=== PATIENT | female | born 1955 | race Caucasian/White ===

== ENCOUNTER 2017-04-04 13:04 | Inpatient (IN) | payer OTHER ==
[~2017-04-04] VITALS: Ht 167.6 cm; Wt 54.3 kg
[2017-04-04] MEDS ORDERED: PREDNISONE 5 MG5 M1 PO (13:25)
[2017-04-04 14:03] LABS: ABSOLUTE NEUTROPHILS 5.8 thou/uL (1.4-8.2); BASOPHILS 0.4 % (0.0-2.0); EOSINOPHILS 1.7 % (0.0-3.0); HEMATOCRIT 43.7 % (37.0-47.0); HEMOGLOBIN 15.2 gm/dL (12.0-15.0); LYMPHOCYTES 17.4 % (24.0-44.0); MCH 36.7 pg (26.0-34.0); MCHC 34.6 g/dL (28.0-37.0); MCV 106.1 fL (80.0-100.0); MONOCYTES 7.2 % (1.0-8.0); PLATELET COUNT 194 thou/uL (150-400); POLYS 73.3 % (36.0-66.0); RBC 4.12 mil/uL (4.20-5.00); RDW 15.6 % (10.5-14.5); WBC 7.9 thou/uL (4.0-11.0)
[2017-04-04 14:05] LABS: MANUAL DIFF NO
[2017-04-04 14:09] LABS: ANION GAP 9 mmol/L (7-16); BUN 16 mg/dL (7-18); CALCIUM 9.2 mg/dL (8.5-10.1); CHLORIDE 107 mmol/L (98-107); CO2 30 mmol/L (21-32); CREATININE 0.4 mg/dL (0.6-1.0); GLUCOSE 83 mg/dL (74-106); POTASSIUM 3.9 mmol/L (3.5-5.1); SODIUM 146 mmol/L (136-145)
[2017-04-04 14:15] LABS: ALBUMIN 3.1 g/dL (3.4-5.0); ALKALINE PHOSPHATASE 102 U/L (46-116); SALICYLATE < 2.8 mg/dL (2.8-20.0); SGOT 24 U/L (15-37); SGPT 22 U/L (30-65); TOTAL BILIRUBIN 0.2 mg/dL (<0.1-1.0); TOTAL PROTEIN 7.2 g/dL (6.4-8.2)
[2017-04-04 14:16] LABS: ACETAMINOPHEN < 2 ug/mL (10-30)
[2017-04-04 15:01] LABS: URINE BILIRUBIN NEGATIVE (Negative); URINE BLOOD NEGATIVE (Negative); URINE COLOR YELLOW; URINE GLUCOSE-RANDOM* NEGATIVE (Negative); URINE KETONES NEGATIVE (Negative); URINE LEUKOCYTES-REFLEX NEGATIVE (Negative); URINE PROTEIN (DIPSTICK) NEGATIVE (Negative); URINE UROBILINOGEN 0.2 E.U./dl (0.2-1.0)
[2017-04-04 15:09] LABS: AMP/METHAMP Negative (Negative); BARBITURATES Negative (Negative); BENZODIAZEPINES Negative (Negative); COCAINE Negative (Negative); METHADONE Negative (Negative); OPIATES Negative (Negative); PCP Negative (Negative); THC Negative (Negative)
[2017-04-04 20:56] VITALS: BP 148/71
[2017-04-04 21:10] VITALS: BP 141/79
[2017-04-04 22:24] LABS: MAGNESIUM 1.1 mg/dL (1.8-2.4); PHOSPHORUS 2.7 mg/dL (2.5-4.9)
[2017-04-04 22:53] LABS: FOLIC ACID 8.6 ng/mL (8.6-58.9)
[2017-04-05 04:26] VITALS: BP 137/74
[2017-04-05 06:13] LABS: HEMATOCRIT 37.8 % (37.0-47.0); HEMOGLOBIN 12.6 gm/dL (12.0-15.0); MCH 35.7 pg (26.0-34.0); MCHC 33.4 g/dL (28.0-37.0); MCV 106.7 fL (80.0-100.0); RBC 3.54 mil/uL (4.20-5.00); RDW 15.8 % (10.5-14.5); WBC 7.2 thou/uL (4.0-11.0)
[2017-04-05 06:27] LABS: CALCIUM 8.2 mg/dL (8.5-10.1); CREATININE 0.8 mg/dL (0.6-1.0); MAGNESIUM 2.3 mg/dL (1.8-2.4); POTASSIUM 3.6 mmol/L (3.5-5.1)
[2017-04-05 07:43] VITALS: BP 154/75
[2017-04-05 09:10] LABS: FREE T4 1.08 ng/dL (0.82-1.77)
[2017-04-05 15:54] VITALS: BP 154/73
[2017-04-05 19:35] VITALS: BP 150/76
[2017-04-06 03:52] VITALS: BP 154/71
[2017-04-06 06:03] LABS: ABSOLUTE NEUTROPHILS 5.3 thou/uL (1.4-8.2); BASOPHILS 0.4 % (0.0-2.0); EOSINOPHILS 1.4 % (0.0-3.0); HEMATOCRIT 41.4 % (37.0-47.0); HEMOGLOBIN 14.2 gm/dL (12.0-15.0); LYMPHOCYTES 17.6 % (24.0-44.0); MCH 36.1 pg (26.0-34.0); MCHC 34.3 g/dL (28.0-37.0); MCV 105.2 fL (80.0-100.0); PLATELET COUNT 174 thou/uL (150-400); POLYS 71.6 % (36.0-66.0); RBC 3.93 mil/uL (4.20-5.00); RDW 15.2 % (10.5-14.5); WBC 7.3 thou/uL (4.0-11.0)
[2017-04-06 06:04] LABS: MANUAL DIFF NO
[2017-04-06 06:13] LABS: CREATININE 0.8 mg/dL (0.6-1.0); MAGNESIUM 1.7 mg/dL (1.8-2.4); PHOSPHORUS 2.5 mg/dL (2.5-4.9); POTASSIUM 3.9 mmol/L (3.5-5.1)
[2017-04-06 08:00] VITALS: BP 148/70
[2017-04-06] MEDS ORDERED: REMERON15 MG PO (10:05)
[2017-04-06] MEDS ORDERED: LIBRAX CAPSULE1 EACH PO (10:06)
[2017-04-06 12:00] VITALS: BP 148/70
== END 2017-04-06 12:16 | disposition home or self-care (01) | DRG 897 ==
LOC: EDBD 13:04 → ER 13:04 → 4S 20:36 → EROBS 20:36 → 4S 21:14
PROVIDERS: Emergency Medicine; Nurse Practitioner Family
DX: F10.230 Alcohol dependence with withdrawal, uncomplicated (principal); F41.9 Anxiety disorder, unspecified; F32.9 Major depressive disorder, single episode, unspecified; J44.9 Chronic obstructive pulmonary disease, unspecified; G40.909 Epilepsy, unspecified, not intractable, without status epilepticus; F17.210 Nicotine dependence, cigarettes, uncomplicated; Y90.8 Blood alcohol level of 240 mg/100 ml or more; Z88.6 Allergy status to analgesic agent
CPT/HCPCS: 10100

== ENCOUNTER 2017-12-21 19:20 | Emergency (ER) | payer OTHER ==
[~2017-12-21] VITALS: Ht 167.6 cm; Wt 54.4 kg
--- NOTE | ~2017-12-21 | EKG ---
[address] [address] ELECTROCARDIOGRAM REPORT Name: MINDI WAGNER ALLYSSA Room #: DEP [facility]#: [id number] Admission: 12/21/17 Attend Phys: Discharge: 12/21/17 Date of : 53 Report #: [id number] THIS REPORT FOR: //name// [facility] ED Test Date: 2017-12-21 Test Time: 20:14:16 Pat Name: MINDI WAGNER Department: Room: Gender: F [employer]: SOSA : 1955 Requested By: David Peoples Order Number: [id number] MD: Jose Rafael Graves Measurements Intervals [place] Rate: 100 P: 66 NM: 129 QRS: 73 QRSD: 85 T: 58 QT: 360 QTc: 465 Interpretive Statements Sinus tachycardia Otherwise normal tracing No previous ECG available for comparison Electronically Signed On 12-23-2017 10:06:17 CDT by Jose Rafael Graves [email or web address] <ELECTRONICALLY SIGNED> By: Jose Rafael Graves MD, [facility] 12/23/17 1006 2014 13 Jose Rafael Graves MD, FACC /EPI
[~2017-12-21 19:20] MED LIST: LIBRAX CAPSULE1 EACH PO; PREDNISONE 5 MG5 M1 PO; REMERON15 MG PO
[2017-12-21 21:07] LABS: ABSOLUTE NEUTROPHILS 5.1 thou/uL (1.4-8.2); BASOPHILS 0.7 % (0.0-2.0); EOSINOPHILS 0.8 % (0.0-3.0); HEMATOCRIT 39.1 % (37.0-47.0); LYMPHOCYTES 29.7 % (24.0-44.0); MCHC 33.3 g/dL (28.0-37.0); MCV 93.1 fL (80.0-100.0); MONOCYTES 5.9 % (1.0-8.0); PLATELET COUNT 266 thou/uL (150-400); POLYS 62.9 % (36.0-66.0); RDW 15.8 % (10.5-14.5); WBC 8.1 thou/uL (4.0-11.0)
[2017-12-21 21:10] LABS: ANION GAP 7 mmol/L (7-16); BUN 13 mg/dL (7-18); CALCIUM 8.8 mg/dL (8.5-10.1); CHLORIDE 106 mmol/L (98-107); CO2 31 mmol/L (21-32); CREATININE 0.7 mg/dL (0.6-1.0); GLUCOSE 90 mg/dL (74-106); POTASSIUM 3.5 mmol/L (3.5-5.1); SODIUM 144 mmol/L (136-145)
[2017-12-21 21:19] LABS: TROPONIN-I < 0.04 ng/mL (<0.06)
[2017-12-21] MEDS ORDERED: PREDNISONE 20 M20 MG PO (21:49)
== END 2017-12-21 22:26 | disposition home or self-care (01) ==
LOC: ER 19:20
PROVIDERS: Physician Assistant
DX: J44.1 Chronic obstructive pulmonary disease with (acute) exacerbation (principal); F10.129 Alcohol abuse with intoxication, unspecified; R55 Syncope and collapse; F32.9 Major depressive disorder, single episode, unspecified; F41.9 Anxiety disorder, unspecified; Z88.5 Allergy status to narcotic agent

== ENCOUNTER 2018-06-23 11:45 | Emergency (ER) | payer OTHER ==
[~2018-06-23] VITALS: Ht 165.1 cm; Wt 67.1 kg
[~2018-06-23 11:45] MED LIST changes: +PREDNISONE 20 M20 MG PO
[2018-06-23] MEDS ORDERED: MS CONTIN15 MG PO (12:02)
[2018-06-23] MEDS ORDERED: IPRAT-ALBUT 0.5-3 ML INH (12:02)
[2018-06-23] MEDS ORDERED: PROZAC10 MG PO (12:03)
[2018-06-23] MEDS ORDERED: LIPITOR10 MG PO (12:03)
[2018-06-23] MEDS ORDERED: NEURONTIN600 MG PO (12:03)
[2018-06-23] MEDS ORDERED: ATIVAN1 MG PO (12:04)
[2018-06-23] MEDS ORDERED: HALOPERIDOL 2 MG2 M1 PO (12:04)
[2018-06-23] MEDS ORDERED: SENNA-TIME S T1 EACH PO (12:05)
[2018-06-23] MEDS ORDERED: MUCINEX600 MG PO (12:05)
[2018-06-23] MEDS ORDERED: PREDNISONE 10 M10 M1 PO (12:05)
[2018-06-23] MEDS ORDERED: ALBUTEROL2.5 MG/31 INH (12:06)
[2018-06-23] MEDS ORDERED: SYMBICORT160 MCG/4. INH (12:06)
[2018-06-23] MEDS ORDERED: SPIRIVA INH (12:06)
[2018-06-23] MEDS ORDERED: ASPERCREME76.5 GM TOP (12:07)
[2018-06-23] MEDS ORDERED: MORPHINE SULFAT15 M3 PO (12:07)
[2018-06-23] MEDS ORDERED: LOPERAMIDE 2 MG2 M1 PO (12:07)
[2018-06-23] MEDS ORDERED: TYLENOL325 MG PO (12:07)
[2018-06-23] MEDS ORDERED: VENTOLIN HFA 1818 GM INH (12:08)
[2018-06-23 14:19] VITALS: BP 127/62
== END 2018-06-23 14:20 | disposition home or self-care (01) ==
LOC: ER 11:45
DX: M54.5 Low back pain (principal); G89.29 Other chronic pain; Z51.81 Encounter for therapeutic drug level monitoring; F17.210 Nicotine dependence, cigarettes, uncomplicated; F41.9 Anxiety disorder, unspecified; F32.9 Major depressive disorder, single episode, unspecified; J44.9 Chronic obstructive pulmonary disease, unspecified; F20.9 Schizophrenia, unspecified; K76.0 Fatty (change of) liver, not elsewhere classified; Z88.5 Allergy status to narcotic agent

== ENCOUNTER 2018-06-23 23:40 | Emergency (ER) | payer OTHER ==
[~2018-06-23] VITALS: Ht 165.1 cm; Wt 67.1 kg
[~2018-06-23 23:40] MED LIST changes: +ALBUTEROL2.5 MG/31 INH; +ASPERCREME76.5 GM TOP; +ATIVAN1 MG PO; +HALOPERIDOL 2 MG2 M1 PO; +IPRAT-ALBUT 0.5-3 ML INH; +LIPITOR10 MG PO; +LOPERAMIDE 2 MG2 M1 PO; +MORPHINE SULFAT15 M3 PO; +MS CONTIN15 MG PO; +MUCINEX600 MG PO; +NEURONTIN600 MG PO; +PREDNISONE 10 M10 M1 PO; +PROZAC10 MG PO; +SENNA-TIME S T1 EACH PO; +SPIRIVA INH; +SYMBICORT160 MCG/4. INH; +TYLENOL325 MG PO; +VENTOLIN HFA 1818 GM INH
[2018-06-24 03:13] VITALS: BP 137/71
== END 2018-06-24 03:20 | disposition home or self-care (01) ==
LOC: ER 23:40
DX: S51.012A Laceration without foreign body of left elbow, initial encounter (principal); S41.111A Laceration without foreign body of right upper arm, initial encounter; F17.210 Nicotine dependence, cigarettes, uncomplicated; F41.9 Anxiety disorder, unspecified; F32.9 Major depressive disorder, single episode, unspecified; J44.9 Chronic obstructive pulmonary disease, unspecified; F20.9 Schizophrenia, unspecified; K76.0 Fatty (change of) liver, not elsewhere classified; Z88.5 Allergy status to narcotic agent; W18.39XA Other fall on same level, initial encounter; Y92.002 Bathroom of unspecified non-institutional (private) residence as the place of occurrence of the external cause; Y93.89 Activity, other specified; Y99.8 Other external cause status

== ENCOUNTER 2018-06-28 18:15 | Inpatient (IN) | payer OTHER ==
[~2018-06-28] VITALS: Ht 170.2 cm; Wt 63.5 kg
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
[2018-06-28 18:16] VITALS: BP 134/73
[2018-06-28 19:11] LABS: BASOPHILS 0.4 % (0.0-2.0); EOSINOPHILS 0.6 % (0.0-3.0); HEMATOCRIT 45.7 % (37.0-47.0); HEMOGLOBIN 15.3 gm/dL (12.0-15.0); LYMPHOCYTES 17.4 % (24.0-44.0); MCHC 33.4 g/dL (28.0-37.0); MCV 98.8 fL (80.0-100.0); MONOCYTES 11.9 % (1.0-8.0); PLATELET COUNT 319 thou/uL (150-400); POLYS 69.7 % (36.0-66.0); RBC 4.63 mil/uL (4.20-5.00); RDW 17.3 % (10.5-14.5); WBC 7.2 thou/uL (4.0-11.0)
[2018-06-28 19:24] LABS: CALCIUM 9.5 mg/dL (8.5-10.1); CREATININE 0.8 mg/dL (0.6-1.0); POTASSIUM 3.7 mmol/L (3.5-5.1)
[2018-06-28 19:29] LABS: ALBUMIN 3.3 g/dL (3.4-5.0); DIRECT BILIRUBIN 0.2 mg/dL (<0.1-0.3); TOTAL BILIRUBIN 0.6 mg/dL (<0.1-1.0); TOTAL PROTEIN 7.9 g/dL (6.4-8.2)
[2018-06-28 19:50] LABS: URINE BILIRUBIN 1+ (Negative); URINE BLOOD NEGATIVE (Negative); URINE CLARITY CLEAR; URINE COLOR YELLOW; URINE GLUCOSE-RANDOM* NEGATIVE (Negative); URINE KETONES NEGATIVE (Negative); URINE LEUKOCYTES-REFLEX 1+ (Negative); URINE NITRITE-REFLEX NEGATIVE (Negative); URINE PROTEIN (DIPSTICK) NEGATIVE (Negative)
[2018-06-28 19:52] LABS: ICTOTEST (BILI CONFIRMATORY) Negative (Negative)
[2018-06-28 19:58] LABS: CASTS None Seen /LPF (None Seen); CRYSTALS None Seen /LPF (None Seen); MUCUS 0-3 Light strn/LPF (None Seen); SQUAMOUS 0-3 Few /LPF (0-3); URINE RBC None Seen /HPF (0-2); URINE WBC-REFLEX 6-15 Few /HPF (0-5)
[2018-06-28 19:59] LABS: BACTERIA-REFLEX 1-9 Few /HPF (None Seen)
[2018-06-28 21:20] VITALS: BP 130/73
[2018-06-28] MEDS ORDERED: SPIRIVA INH (22:07)
[2018-06-28] MEDS ORDERED: BUSPIRONE HCL10 MG PO (22:10)
[2018-06-28] MEDS ORDERED: CONSTULOSE10 GM/15 M PO (22:14)
[2018-06-28] MEDS ORDERED: MS CONTIN15 MG PO (22:17)
[2018-06-28] MEDS ORDERED: MIRALAX17 GM PO (22:18)
[2018-06-28 22:25] VITALS: BP 121/77
[2018-06-28 22:39] VITALS: BP 127/61
[2018-06-29 04:53] LABS: HEMATOCRIT 43.9 % (37.0-47.0); HEMOGLOBIN 14.5 gm/dL (12.0-15.0); MCH 33.1 pg (26.0-34.0); MCV 100.4 fL (80.0-100.0); RBC 4.37 mil/uL (4.20-5.00); RDW 17.6 % (10.5-14.5); WBC 6.5 thou/uL (4.0-11.0)
[2018-06-29 05:02] LABS: INR 1.2; PROTIME 12.7 Seconds (9.3-11.4)
[2018-06-29 05:11] LABS: CALCIUM 8.7 mg/dL (8.5-10.1); CREATININE 0.7 mg/dL (0.6-1.0); POTASSIUM 3.5 mmol/L (3.5-5.1)
[2018-06-29 06:27] VITALS: BP 158/73
[2018-06-29 07:41] VITALS: BP 154/68
[2018-06-29 16:38] VITALS: BP 136/74
[2018-06-29 20:30] VITALS: BP 137/82
[2018-06-30 04:30] VITALS: BP 161/93
[2018-06-30 05:52] LABS: HEMATOCRIT 49.6 % (37.0-47.0); MCH 33.4 pg (26.0-34.0); MCHC 33.6 g/dL (28.0-37.0); MCV 99.4 fL (80.0-100.0); RBC 4.99 mil/uL (4.20-5.00); RDW 17.8 % (10.5-14.5); WBC 7.2 thou/uL (4.0-11.0)
[2018-06-30 05:53] LABS: HEMOGLOBIN 16.7 gm/dL (12.0-15.0)
[2018-06-30 06:01] LABS: CALCIUM 8.9 mg/dL (8.5-10.1); CREATININE 0.7 mg/dL (0.6-1.0)
[2018-06-30 08:44] VITALS: BP 147/81
[2018-06-30 17:07] VITALS: BP 159/85
[2018-07-01 05:43] VITALS: BP 163/84
[2018-07-01 06:04] LABS: HEMATOCRIT 44.9 % (37.0-47.0); HEMOGLOBIN 14.9 gm/dL (12.0-15.0); MCH 32.8 pg (26.0-34.0); MCHC 33.2 g/dL (28.0-37.0); MCV 98.9 fL (80.0-100.0); RBC 4.54 mil/uL (4.20-5.00); RDW 17.2 % (10.5-14.5)
[2018-07-01 06:16] LABS: CALCIUM 8.6 mg/dL (8.5-10.1); CREATININE 0.8 mg/dL (0.6-1.0); POTASSIUM 3.8 mmol/L (3.5-5.1)
[2018-07-01 09:07] VITALS: BP 158/91
[2018-07-01 15:42] VITALS: BP 158/94
[2018-07-01 19:26] VITALS: BP 180/85
[2018-07-02 03:48] VITALS: BP 176/86
[2018-07-02 08:07] VITALS: BP 163/88
[2018-07-02 16:05] VITALS: BP 133/73
[2018-07-02 19:30] VITALS: BP 139/67
[2018-07-03 07:15] VITALS: BP 131/80
[2018-07-03 15:14] VITALS: BP 150/64
[2018-07-03 19:38] VITALS: BP 147/64
[2018-07-04 05:29] VITALS: BP 162/75
[2018-07-04 07:28] VITALS: BP 172/74
[2018-07-04 14:55] VITALS: BP 144/70
[2018-07-04 20:43] VITALS: BP 146/61
[2018-07-05 04:39] VITALS: BP 184/99
[2018-07-05 07:39] VITALS: BP 150/71
[2018-07-05 14:23] VITALS: BP 148/64
[2018-07-05 19:44] VITALS: BP 148/74
[2018-07-06 04:04] VITALS: BP 138/76
[2018-07-06 08:10] VITALS: BP 144/72
[2018-07-06] MEDS ORDERED: AUGMENTIN 875-1 EACH PO (12:41)
== END 2018-07-06 15:15 | DRG 445 ==
LOC: ER 18:15 → 4W 20:48 → EROBS 20:48 → 4W 22:24
PROVIDERS: Emergency Medicine; Hospitalist; Nurse Practitioner Family
PROC: 0F9430Z Drainage of Gallbladder with Drainage Device, Percutaneous Approach (ICD-10-PCS; principal; 2018-07-01)
DX: K81.0 Acute cholecystitis (principal); S32.10XA Unspecified fracture of sacrum, initial encounter for closed fracture; N39.0 Urinary tract infection, site not specified; F41.9 Anxiety disorder, unspecified; F32.9 Major depressive disorder, single episode, unspecified; J44.9 Chronic obstructive pulmonary disease, unspecified; F17.210 Nicotine dependence, cigarettes, uncomplicated; G40.909 Epilepsy, unspecified, not intractable, without status epilepticus; E78.5 Hyperlipidemia, unspecified; G62.9 Polyneuropathy, unspecified; K59.00 Constipation, unspecified; T40.605A Adverse effect of unspecified narcotics, initial encounter; F98.0 Enuresis not due to a substance or known physiological condition; Z79.899 Other long term (current) drug therapy; Z88.6 Allergy status to analgesic agent; G89.29 Other chronic pain; M54.9 Dorsalgia, unspecified; W18.39XA Other fall on same level, initial encounter; Y93.89 Activity, other specified; Y92.89 Other specified places as the place of occurrence of the external cause; Y99.8 Other external cause status
CPT/HCPCS: 10045

== ENCOUNTER → 2018-07-26 | Emergency (ER) | payer OTHER ==
[~2018-07-26] VITALS: Ht 167.6 cm; Wt 59.0 kg
[~2018-07-26] MED LIST changes: +AUGMENTIN 875-1 EACH PO; +BUSPIRONE HCL10 MG PO; +CONSTULOSE10 GM/15 M PO; +LIBRAX PO; +MILK OF MA2400 MG/10 PO; +MIRALAX17 GM PO; +REGLAN 10 MG TA10 MG PO; +SENNA-DOCUSATE1 EACH PO; +ZOFRAN ODT4 MG PO
[2018-07-26 18:29] LABS: ABSOLUTE NEUTROPHILS 4.9 thou/uL (1.4-8.2); BASOPHILS 0.3 % (0.0-2.0); EOSINOPHILS 0.1 % (0.0-3.0); HEMATOCRIT 37.9 % (37.0-47.0); HEMOGLOBIN 12.8 gm/dL (12.0-15.0); LYMPHOCYTES 20.4 % (24.0-44.0); MCH 32.6 pg (26.0-34.0); MCHC 33.7 g/dL (28.0-37.0); MCV 96.9 fL (80.0-100.0); MONOCYTES 3.1 % (1.0-8.0); PLATELET COUNT 261 thou/uL (150-400); POLYS 76.1 % (36.0-66.0); RBC 3.91 mil/uL (4.20-5.00); RDW 16.8 % (10.5-14.5); WBC 6.5 thou/uL (4.0-11.0)
[2018-07-26 18:43] LABS: CALCIUM 8.3 mg/dL (8.5-10.1); CREATININE 0.7 mg/dL (0.6-1.0); POTASSIUM 3.6 mmol/L (3.5-5.1)
[2018-07-26 18:49] LABS: ALBUMIN 2.8 g/dL (3.4-5.0); TOTAL BILIRUBIN 0.2 mg/dL (<0.1-1.0); TOTAL PROTEIN 6.9 g/dL (6.4-8.2)
[2018-07-26 22:40] VITALS: BP 105/69
== END ==
LOC: ER 17:50
PROVIDERS: Emergency Medicine
DX: R11.2 Nausea with vomiting, unspecified (principal); R10.11 Right upper quadrant pain; F17.210 Nicotine dependence, cigarettes, uncomplicated; F41.9 Anxiety disorder, unspecified; F32.9 Major depressive disorder, single episode, unspecified; G89.29 Other chronic pain; M54.9 Dorsalgia, unspecified; J44.9 Chronic obstructive pulmonary disease, unspecified; F20.9 Schizophrenia, unspecified; K76.0 Fatty (change of) liver, not elsewhere classified; Z88.5 Allergy status to narcotic agent